=== PATIENT | male | born 2005 | race Hispanic/Latino ===

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

== ENCOUNTER 2025-02-08 23:28 | Emergency (ER) | payer BC, OTHER ==
[~2025-02-08] VITALS: Ht 175.3 cm; Wt 113.4 kg
[2025-02-08 23:49] VITALS: TEMP 98.4
[2025-02-09 00:26] LABS: BASOPHILS % 0.9 % (0.0-1.0); EOSINOPHILS % 1.7 % (0.0-6.0); LYMPHOCYTES % 21.3 % (18.0-39.1); MONOCYTES % 7.4 % (4.4-11.3); NEUTROPHILS % 68.4 % (38.7-80.0); RED CELL DISTRIBUTION WIDTH 13.1 % (11.7-14.4)
[2025-02-09 00:40] LABS: EST GLOMERULAR FILTRATION RATE 102.0 ML/MIN (>=60)
[2025-02-09 01:45] VITALS: PULSE 77; RESP 20
[2025-02-09 01:55] LABS: AMPHETAMINES SCREEN,URINE NEGATIVE (NEGATIVE); CANNABINOIDS SCREEN,URINE NEGATIVE (NEGATIVE); COCAINE SCREEN,URINE NEGATIVE (NEGATIVE); METHADONE SCREEN, URINE NEGATIVE (NEGATIVE); OPIATES SCREEN,URINE NEGATIVE (NEGATIVE)
[2025-02-09 02:55] VITALS: BP 126/74; PULSE 72; RESP 20; O2SAT 100
== END 2025-02-09 02:58 | disposition home or self-care (01) ==
LOC: ER 02-09 01:08
DX: R42 Dizziness and giddiness (principal); R00.2 Palpitations; I49.1 Atrial premature depolarization; R94.31 Abnormal electrocardiogram [ECG] [EKG]
CPT/HCPCS: 36415; 71045; 80053; 80307; 82550; 84484; 85025; 99284